=== PATIENT | female | born 1995 | race Caucasian/White ===

== ENCOUNTER 2018-08-30 16:50 | Emergency (ER) | payer OTHER ==
--- NOTE | 2018-08-30 16:57 | PDOC ---
Rapid Medical Evaluation Chief Complaint: Vaginal Bleeding Time Seen by Provider: 08/30/18 16:53 Medical Evaluation: Allergies Allergy/AdvReac Type Severity Reaction Status Date / Time No Known Allergies Allergy Verified 08/30/18 16:52 08/30/18 16:53 I have performed a brief in person evaluation of this patient. The patient presents with a CC of: vaginal bleeding Pt is a 23 YO female who states she has had vaginal bleeding x 1 day. Pt states her LMP was 2 weeks ago. Pt admit to pain. Pain is a 4/10. PE: Skin: clear Lungs: Clear Heart: RRR Abd: No pain upon palpation MS: Moves all extremities without difficulty. Psych: Age appropriate. I have ordered the following: [facility] [place] The patient will proceed to the ED for further evaluation. Discharge Disposition - Diagnosis Vaginal bleeding - Referrals - Patient Instructions - Post Discharge Activity
[2018-08-30 17:08] VITALS: BP 124/78; PULSE 79; TEMP 98.2; BMI 27.8
--- NOTE | 2018-08-30 17:34 | PDOC ---
History of Present Illness - General Chief Complaint: Vaginal Bleeding Stated Complaint: VAGINAL BLEEDING Time Seen by Provider: 08/30/18 16:53 History Source: Patient Exam Limitations: No Limitations - History of Present Illness Initial Comments: 08/30/18 17:59 Patient is a 23-year-old female with no past medical history, who presents to the emergency department today for blood when she wipes. Patient states that she has pain when she pees and feels like she has to constantly urinate. She states that only a little amount of urine comes out when she pees. LMP was two weeks ago. Denies fevers, chills, back pain, n/v/d. Past History - Travel Traveled outside of the country in the last 30 days: No Close contact w/someone who was outside of country & ill: No - Past Medical History Allergies/Adverse Reactions: Allergies Allergy/AdvReac Type Severity Reaction Status Date / Time No Known Allergies Allergy Verified 08/30/18 16:52 Home Medications: Ambulatory Orders Cephalexin Monohydrate [Keflex -] 500 mg PO BID #14 capsule 08/30/18 Phenazopyridine HCl [Pyridium -] 100 mg PO TID #9 tablet 08/30/18 COPD: No - Immunization History Immunization Up to Date: Yes - Suicide/Smoking/Psychosocial Hx Smoking History: Never smoked Hx Alcohol Use: No Drug/Substance Use Hx: No Substance Use Type: None Review of Systems - Review of Systems Able to Perform ROS?: Yes Comments:: 08/30/18 17:33 CONSTITUTIONAL: Absent: fever, chills, diaphoresis, generalized weakness, malaise, loss of appetite HEENT: Absent: rhinorrhea, nasal congestion, throat pain, throat swelling, difficulty swallowing, mouth swelling, ear pain, eye pain, visual Changes CARDIOVASCULAR: Absent: chest pain, loss of consciousness, palpitations, irregular heart rate, peripheral edema RESPIRATORY: Absent: cough, shortness of breath, dyspnea with exertion, orthopnea, wheezing, stridor, hemoptysis GASTROINTESTINAL: Absent: abdominal pain, abdominal distension, nausea, vomiting, diarrhea, constipation, melena, hematochezia GENITOURINARY: Present: dysuria, frequency, urgency Absent: hesitancy, hematuria, flank pain, genital pain MUSCULOSKELETAL: Absent: myalgia, arthralgia, joint swelling SKIN: Absent: rash, itching, pallor HEMATOLOGIC/IMMUNOLOGIC: Absent: easy bleeding, easy bruising, lymphadenopathy, frequent infections ENDOCRINE: Absent: unexplained weight gain, unexplained weight loss, heat intolerance, cold intolerance NEUROLOGIC: Absent: headache, focal weakness or paresthesias, dizziness, unsteady gait, seizure, mental status changes, bladder or bowel incontinence PSYCHIATRIC: Absent: anxiety, depression, suicidal or homicidal ideation, hallucinations. Is the patient limited Chinese proficient: No *Physical Exam - Vital Signs Last Vital Signs Temp Pulse Resp BP Pulse Ox 98.2 F 79 16 124/78 99 08/30/18 16:52 08/30/18 16:52 08/30/18 16:52 08/30/18 16:52 08/30/18 16:52 - Physical Exam Comments: 08/30/18 17:34 GENERAL: Well developed, well nourished. Awake and alert. No acute distress. HEENT: Normocephalic, atraumatic. PERRLA, EOMI. No conjunctival pallor. Sclera are non- icteric. Moist mucous membranes. Oropharynx is clear. NECK: Supple. Full ROM. No JVD. Carotid pulses 2+ and symmetric, without bruits. No thyromegaly. No lymphadenopathy. CARDIOVASCULAR: Regular rate and rhythm. No murmurs, rubs, or gallops. Distal pulses are 2+ and symmetric. PULMONARY: No evidence of respiratory distress. Lungs clear to auscultation bilaterally. No wheezing, rales or rhonchi. ABDOMINAL: Discomfort with palpation to the suprapubic region. Soft. Non-tender. Non- distended. No rebound or guarding. No organomegaly. Normoactive bowel sounds. : Pt refuses vaginal exam. MUSCULOSKELETAL Normal range of motion at all joints. No bony deformities or tenderness. No CVA tenderness. EXTREMITIES: No cyanosis. No clubbing. No edema. No calf tenderness. SKIN: Warm and dry. Normal capillary refill. No rashes. No jaundice. NEUROLOGICAL: Alert, awake, appropriate. Cranial nerves 2-12 intact. No deficits to light touch and temperature in face, upper extremities and lower extremities. No motor deficits in the in face, upper extremities and lower extremities. Normoreflexic in the upper and lower extremities. Normal speech. Toes are down- going bilaterally. Gait is normal without ataxia. PSYCHIATRIC: Cooperative. Good eye contact. Appropriate mood and affect. Medical Decision Making - Medical Decision Making 08/30/18 19:17 Pt is a 23 y/o F who presents to the ED for "blood when she wipes" after using the bathroom. Also admits to dysuria and frequency with poor emptying. DDX: UTI , , ectopic, dysmenorrhea. -LMP two weeks ago. -Exam: Pt with suprapubic tenderness. Negative CVA tenderness -Pt refusing vaginal exam at this time as she does not feel comfortable taking her clothes off. Explained to patient that her exam is incomplete as she refuses the pelvic exam. Pt understands and states she needs an sheet tester -Urine is negative for -UA with 1+ Leuks, 10 WBC. Will treat for UTI at this time. Keflex and pyridium given -DC home with both PCP and [facility] referrals. -I discussed the physical exam findings, ancillary test results and final diagnoses with the patient. I answered all of the patient's questions. The patient was satisfied with the care received and felt comfortable with the discharge plan and treatment plan. The Patient agrees to follow up with the primary care physician/specialist within 24-72 hours. Return precautions were given. *DC/Admit/Observation/Transfer Diagnosis at time of Disposition: UTI (urinary tract infection) Qualifiers: Urinary tract infection type: acute cystitis Hematuria presence: with hematuria Qualified Code(s): N30.01 - Acute cystitis with hematuria - Discharge Dispostion Disposition: HOME Condition at time of disposition: Stable Decision to Admit order: No - Prescriptions Prescriptions: Cephalexin Monohydrate [Keflex -] 500 mg PO BID #14 capsule Phenazopyridine HCl [Pyridium -] 100 mg PO TID #9 tablet - Referrals Referrals: Sari Cui MD [Staff Physician] - Lashell Giarldo MD [Staff Physician] - Giovanna Brand MD [Staff Physician] - - Patient Instructions Printed Discharge Instructions: DI for Urinary Tract Infection (UTI) Additional Instructions: You have a urinary tract infection. This caused by bacteria. Please drink plenty of fluids. Take your antibiotics (Keflex) twice a day for one week. Finish the entire dose even if you feel better. Take the Pyridium three times a day with food. This helps with the discomfort You may take Tylenol or Motrin as needed for pain. Follow the dosing instructions on the bottle Please follow up with your primary care doctor this week. You have a referral to see Dr. Pierce blancas for primary care. Dr Cui is for [facility] Return to the emergency department if you have fevers, chills, nausea, vomiting , back pain, or have any changes in your symptoms. - Post Discharge Activity Forms/Work/School Notes: Back to Work
[2018-08-30 18:08] LABS: HCG,QUALITATIVE URINE Negative
[2018-08-30 19:14] LABS: URINE APPEARANCE CLEAR; URINE BILIRUBIN NEGATIVE (<2.0 mg/dL); URINE COLOR STRAW; URINE GLUCOSE (UA) NEGATIVE (NEGATIVE); URINE KETONE NEGATIVE (NEGATIVE); URINE LEUK ESTERASE 1+ (NEGATIVE); URINE NITRITE NEGATIVE (NEGATIVE); URINE PROTEIN NEGATIVE (NEGATIVE); URINE UROBILINOGEN NEGATIVE mg/dL (0.2-1.0)
[2018-08-30 19:17] LABS: EPI CELLS RARE /HPF (FEW)
== END 2018-08-30 20:26 | disposition home or self-care (01) ==
LOC: JER 16:50 → JERFT 16:50
DX: N30.01 Acute cystitis with hematuria (principal)
CPT/HCPCS: 81003; 81015; 84703; 99281-25

== ENCOUNTER 2018-09-24 10:52 | Emergency (ER) | payer OTHER ==
[2018-09-24 11:42] VITALS: BP 100/74; PULSE 70; TEMP 98.2; BMI 27.8
[2018-09-24 12:30] LABS: HCG,QUALITATIVE URINE Negative
[2018-09-24 12:43] LABS: URINE APPEARANCE CLOUDY; URINE BILIRUBIN NEGATIVE (<2.0 mg/dL); URINE COLOR RED; URINE GLUCOSE (UA) NEGATIVE (NEGATIVE); URINE KETONE NEGATIVE (NEGATIVE); URINE LEUK ESTERASE NEGATIVE (NEGATIVE); URINE NITRITE NEGATIVE (NEGATIVE); URINE PROTEIN 1+ (NEGATIVE); URINE UROBILINOGEN NEGATIVE mg/dL (0.2-1.0)
--- NOTE | 2018-09-24 14:03 | PDOC ---
History of Present Illness - General Chief Complaint: Vaginal Sxs Stated Complaint: NOT FEELING WELL Time Seen by Provider: 09/24/18 12:30 History Source: Patient Exam Limitations: No Limitations Past History - Travel Traveled outside of the country in the last 30 days: No Close contact w/someone who was outside of country & ill: No - Past Medical History Allergies/Adverse Reactions: Allergies Allergy/AdvReac Type Severity Reaction Status Date / Time No Known Allergies Allergy Verified 09/24/18 11:39 COPD: No - Immunization History Immunization Up to Date: Yes - Suicide/Smoking/Psychosocial Hx Smoking History: Never smoked Hx Alcohol Use: No Drug/Substance Use Hx: No Substance Use Type: None Review of Systems - Review of Systems Able to Perform ROS?: Yes Comments:: 09/24/18 13:59 CONSTITUTIONAL: Absent: fever, chills, diaphoresis, generalized weakness, malaise, loss of appetite HEENT: Absent: rhinorrhea, nasal congestion, throat pain, throat swelling, difficulty swallowing, mouth swelling, ear pain, eye pain, visual Changes CARDIOVASCULAR: Absent: chest pain, loss of consciousness, palpitations, irregular heart rate, peripheral edema RESPIRATORY: Absent: cough, shortness of breath, dyspnea with exertion, orthopnea, wheezing, stridor, hemoptysis GASTROINTESTINAL: Absent: abdominal pain, abdominal distension, nausea, vomiting, diarrhea, constipation, melena, hematochezia GENITOURINARY: Absent: dysuria, frequency, urgency, hesitancy, hematuria, flank pain, genital pain MUSCULOSKELETAL: Absent: myalgia, arthralgia, joint swelling SKIN: Absent: rash, itching, pallor HEMATOLOGIC/IMMUNOLOGIC: Absent: easy bleeding, easy bruising, lymphadenopathy, frequent infections ENDOCRINE: Absent: unexplained weight gain, unexplained weight loss, heat intolerance, cold intolerance NEUROLOGIC: Absent: headache, focal weakness or paresthesias, dizziness, unsteady gait, seizure, mental status changes, bladder or bowel incontinence PSYCHIATRIC: Absent: anxiety, depression, suicidal or homicidal ideation, hallucinations. Is the patient limited Macanese proficient: No *Physical Exam - Vital Signs Last Vital Signs Temp Pulse Resp BP Pulse Ox 98.2 F 70 16 100/74 100 09/24/18 11:39 09/24/18 11:39 09/24/18 11:39 09/24/18 11:39 09/24/18 11:39 - Physical Exam Comments: 09/24/18 14:00 GENERAL: Well developed, well nourished. Awake and alert. No acute distress. HEENT: Normocephalic, atraumatic. PERRLA, EOMI. No conjunctival pallor. Sclera are non- icteric. Moist mucous membranes. Oropharynx is clear. NECK: Supple. Full ROM. No JVD. Carotid pulses 2+ and symmetric, without bruits. No thyromegaly. No lymphadenopathy. CARDIOVASCULAR: Regular rate and rhythm. No murmurs, rubs, or gallops. Distal pulses are 2+ and symmetric. PULMONARY: No evidence of respiratory distress. Lungs clear to auscultation bilaterally. No wheezing, rales or rhonchi. ABDOMINAL: Soft. Non-tender. Non-distended. No rebound or guarding. No organomegaly. Normoactive bowel sounds. MUSCULOSKELETAL Normal range of motion at all joints. No bony deformities or tenderness. No CVA tenderness. EXTREMITIES: No cyanosis. No clubbing. No edema. No calf tenderness. SKIN: Warm and dry. Normal capillary refill. No rashes. No jaundice. NEUROLOGICAL: Alert, awake, appropriate. Cranial nerves 2-12 intact. No deficits to light touch and temperature in face, upper extremities and lower extremities. No motor deficits in the in face, upper extremities and lower extremities. Normoreflexic in the upper and lower extremities. Normal speech. Toes are down- going bilaterally. Gait is normal without ataxia. PSYCHIATRIC: Cooperative. Good eye contact. Appropriate mood and affect. ED Treatment Course - ADDITIONAL ORDERS Additional order review: Laboratory Results 09/24/18 12:10 Urine Color Red Urine Appearance Cloudy Urine pH 5.0 Ur Specific [place] 1.012 Urine Protein 1+ H Urine Glucose (UA) Negative Urine Ketones Negative Urine Blood 3+ H Urine Nitrite Negative Urine Bilirubin Negative Urine Urobilinogen Negative Ur Leukocyte Esterase Negative Urine WBC (Auto) None Urine RBC (Auto) 2524 Urine HCG, Qual Negative *DC/Admit/Observation/Transfer Diagnosis at time of Disposition: Normal menstrual period - Discharge Dispostion Disposition: HOME Condition at time of disposition: Stable Decision to Admit order: No - Referrals Referrals: Giovanna Brand MD [Primary Care Provider] - Sari Cui MD [Staff Physician] - - Patient Instructions Printed Discharge Instructions: DI for Vaginal Bleeding Additional Instructions: Your exam showed normal anatomy today Your bleeding appears to come from the vagina, which is most likely your menstrual cycle Please follow up with INSTRUMENT CHECKER, Dr. Cui Return to the ED for any new or worsening symptoms - Post Discharge Activity
== END 2018-09-24 14:05 | disposition home or self-care (01) ==
LOC: JERFT 10:52
DX: N94.89 Other specified conditions associated with female genital organs and menstrual cycle (principal)
CPT/HCPCS: 81003; 81015; 84703; 87086; 99281-25

== ENCOUNTER 2020-11-14 15:50 | Emergency (ER) | payer OTHER ==
[2020-11-14 16:07] VITALS: BMI 30.9
[2020-11-14] MEDS ORDERED: ACETAMINOPHEN 325 MG TABLET (FP) PO ONE (17:32)
[2020-11-14] MEDS ORDERED: METOCLOPRAMIDE HCL 10 MG TABLET (FP) PO ONE ×2 (17:35→17:46)
[2020-11-14] MEDS ORDERED: ASPIRIN 325 MG TABLET PO ONE (17:35)
[2020-11-14] MEDS ORDERED: ACETAMINOPHEN 325 MG TABLET (FP) ONE (17:45)
[2020-11-14] MEDS ORDERED: ASPIRIN 325 MG ENTERIC COATED TABLET (FP) ONE (17:45)
[2020-11-14 19:49] VITALS: BP 118/77; PULSE 89; TEMP 98.2
== END 2020-11-14 19:45 | disposition home or self-care (01) ==
LOC: JER 15:50
DX: R51.9 Headache, unspecified (principal)
CPT/HCPCS: 84703; 99285-25; C9803; U0003

== ENCOUNTER 2021-05-01 21:00 | Emergency (ER) | payer OTHER ==
[2021-05-01 21:17] VITALS: TEMP 98.2; BMI 33.0
[2021-05-02 01:00] LABS: PH,URINE 6.5 (5.0-8.0); URINE APPEARANCE Clear; URINE BILIRUBIN Negative (NEGATIVE); URINE COLOR Light yellow; URINE GLUCOSE (UA) Negative (NEGATIVE); URINE KETONE Negative (NEGATIVE); URINE LEUK ESTERASE Trace (NEGATIVE); URINE NITRITE Negative (NEGATIVE); URINE PROTEIN Negative (NEGATIVE); URINE UROBILINOGEN 0.2 mg/dL (0.2-1.0)
[2021-05-02 02:12] VITALS: BP 112/85; PULSE 73
== END 2021-05-02 02:25 | disposition home or self-care (01) ==
LOC: JER 21:00
DX: R22.41 Localized swelling, mass and lump, right lower limb (principal); R22.42 Localized swelling, mass and lump, left lower limb
CPT/HCPCS: 76856-TC; 81003; 82962; 84703; 93970-TC; 99284-25

== ENCOUNTER 2022-03-29 14:46 | Emergency (ER) | payer OTHER ==
[2022-03-29 14:52] VITALS: BP 119/75; PULSE 78; TEMP 98.8; BMI 36.6
[2022-03-29] MEDS ORDERED: ACETAMINOPHEN 500 MG TABLET (FP) PO ONE (16:50)
[2022-03-29] MEDS ORDERED: ASPIRIN 325 MG TABLET PO ONE (16:50)
[2022-03-29] MEDS ORDERED: ASPIRIN 325 MG TABLET ONE (17:11)
[2022-03-29] MEDS ORDERED: ACETAMINOPHEN 325 MG TABLET (FP) ONE (17:11)
[2022-03-29 19:11] LABS: BASO % 0.3 % (0-2.0); EOS % 1.3 % (0-4.5); HEMATOCRIT 37.7 % (32.4-45.2); HEMOGLOBIN 12.3 GM/dL (10.7-15.3); LYMPH % 30.8 % (8-40); MCH 25.1 pg (25.7-33.7); MCHC 32.7 g/dl (32.0-36.0); MEAN CELL VOLUME 76.9 fl (80-96); MEAN PLT VOLUME 7.7 fl (7.5-11.1); MONO % 6.2 % (3.8-10.2); NEUT % 61.4 % (42.8-82.8); PLATELET COUNT 279 10^3/uL (134-434); RDW 17.2 % (11.6-15.6); WHITE BLOOD COUNT 6.6 K/mm3 (4.0-10.0)
[2022-03-29 19:18] LABS: INR 1.14 (0.83-1.09); PROTHROMBIN TIME (PATIENT) 13.1 SEC (9.7-13.0)
[2022-03-29 19:24] LABS: CALCIUM 8.9 mg/dL (8.5-10.1)
[2022-03-29 19:25] LABS: ALBUMIN 3.9 g/dl (3.4-5.0); BLOOD UREA NITROGEN 7.7 mg/dL (7-18); MAGNESIUM 2.4 mg/dL (1.8-2.4)
[2022-03-29 19:28] LABS: CREATININE 0.8 mg/dL (0.55-1.3)
[2022-03-29 19:29] LABS: BILIRUBIN,TOTAL 0.4 mg/dL (0.2-1)
[2022-03-29 19:30] LABS: TOT PROT 7.6 g/dl (6.4-8.2)
[2022-03-29 19:46] LABS: HCG,QUALITATIVE URINE Negative
[2022-03-29 19:47] LABS: EPI CELLS 14 /uL (0-25.1); HYALINE CASTS 2 /uL (0-3.1); URINE APPEARANCE CLOUDY; URINE BACTERIA 10 /uL (0-1359); URINE BILIRUBIN NEGATIVE (NEGATIVE); URINE COLOR YELLOW; URINE GLUCOSE (UA) NEGATIVE (NEGATIVE); URINE KETONE TRACE (NEGATIVE); URINE LEUK ESTERASE 1+ (NEGATIVE); URINE NITRITE NEGATIVE (NEGATIVE); URINE PROTEIN 1+ (NEGATIVE); URINE RBC 9209 /uL (0-23.9); URINE UROBILINOGEN 0.2 mg/dL (0.2-1.0); URINE WBC 57 /uL (0-25.8)
[2022-03-29] MEDS ORDERED: NAPROXEN 500 MG TABLET PO ONE (19:59)
[2022-03-29] MEDS ORDERED: NAPROXEN 500 MG TABLET ONE (20:03)
== END 2022-03-29 22:39 | disposition home or self-care (01) ==
LOC: JER 14:46
DX: R07.9 Chest pain, unspecified (principal)
CPT/HCPCS: 36415; 71046-TC-FY; 80053; 81003; 83735; 84484; 84703; 85025; 85379; 85610; 87086; 87186; 93005; 93010; 99285-25

== ENCOUNTER 2023-06-20 20:28 | Emergency (ER) | payer OTHER ==
[2023-06-20 20:36] VITALS: RESP 18; TEMP 98; BMI 34.5
[2023-06-20 23:32] LABS: BASO % 0.3 % (0-2.0); EOS % 1.4 % (0-4.5); HEMATOCRIT 30.3 % (32.4-45.2); HEMOGLOBIN 9.7 GM/dL (10.7-15.3); LYMPH % 32.6 % (8-40); MCH 21.8 pg (25.7-33.7); MCHC 32.2 g/dl (32.0-36.0); MEAN CELL VOLUME 67.8 fl (80-96); MEAN PLT VOLUME 6.6 fl (7.5-11.1); MONO % 5.6 % (3.8-10.2); NEUT % 60.1 % (42.8-82.8); PLATELET COUNT 469 10^3/uL (134-434); RBC 4.46 M/mm3 (3.60-5.2); RDW 17.1 % (11.6-15.6); WHITE BLOOD COUNT 9.8 K/mm3 (4.0-10.0)
[2023-06-20 23:48] VITALS: BP 124/80; PULSE 77
[2023-06-20 23:56] LABS: ALBUMIN 3.6 g/dl (3.4-5.0); CALCIUM 8.9 mg/dL (8.5-10.1)
[2023-06-20 23:59] LABS: CREATININE 0.8 mg/dL (0.55-1.3)
[2023-06-21] LABS: EPI CELLS 30 /uL (0-25.1); HYALINE CASTS 1 /uL (0-3.1); PH,URINE 5.5 (5.0-8.0); URINE APPEARANCE CLEAR; URINE BACTERIA 40 /uL (0-1359); URINE BILIRUBIN NEGATIVE (NEGATIVE); URINE COLOR YELLOW; URINE GLUCOSE (UA) NEGATIVE (NEGATIVE); URINE KETONE NEGATIVE (NEGATIVE); URINE LEUK ESTERASE 3+ (NEGATIVE); URINE NITRITE NEGATIVE (NEGATIVE); URINE PROTEIN NEGATIVE (NEGATIVE); URINE RBC 2026 /uL (0-23.9); URINE UROBILINOGEN 0.2 mg/dL (0.2-1.0); URINE WBC 391 /uL (0-25.8)
[2023-06-21 00:01] LABS: BILIRUBIN,TOTAL 0.2 mg/dL (0.2-1); TOT PROT 7.7 g/dl (6.4-8.2)
[2023-06-21 00:03] LABS: POTASSIUM 4.3 mmol/L (3.5-5.1)
[2023-06-21 00:32] LABS: ANISOCYTOSIS 2+; MACROCYTOSIS 0; OVALOCYTE 2+; TARGET CELLS 2+; TEAR DROP CELLS 2+
[2023-06-21 00:35] LABS: BLOOD UREA NITROGEN 12.2 mg/dL (7-18)
== END 2023-06-21 02:44 | disposition home or self-care (01) ==
LOC: JER 20:28
DX: M54.50 Low back pain, unspecified (principal); R10.32 Left lower quadrant pain; N93.9 Abnormal uterine and vaginal bleeding, unspecified; D50.9 Iron deficiency anemia, unspecified; K52.9 Noninfective gastroenteritis and colitis, unspecified
CPT/HCPCS: 36415; 74177-TC; 80053; 81003; 84703; 85025; 86850; 86900; 86901; 87086; 99285-25; Q9967

== ENCOUNTER 2024-02-05 09:05 | Emergency (ER) | payer OTHER ==
[2024-02-05 09:44] VITALS: BP 113/76; BMI 34.5
[2024-02-05] MEDS ORDERED: ACETAMINOPHEN INJECTION 100 ML IVPB ONE (11:08)
[2024-02-05] MEDS: LACTATED RINGERS SOLUTION 1000 ML INFUS.BAG IV ONE (11:14)
[2024-02-05] MEDS: ACETAMINOPHEN 1000 MG/100 ML BAG IVPB ONE (11:14)
[2024-02-05 11:21] LABS: BASO % 0.6 % (0-2.0); EOS % 2.7 % (0-4.5); HEMATOCRIT 42.6 % (32.4-45.2); HEMOGLOBIN 14.4 GM/dL (10.7-15.3); LYMPH % 24.1 % (8-40); MCH 28.8 pg (25.7-33.7); MCHC 33.8 g/dl (32.0-36.0); MEAN CELL VOLUME 85.3 fl (80-96); MEAN PLT VOLUME 7.3 fl (7.5-11.1); NEUT % 65.6 % (42.8-82.8); PLATELET COUNT 297 10^3/uL (134-434); RBC 4.99 M/mm3 (3.60-5.2); RDW 13.7 % (11.6-15.6); WHITE BLOOD COUNT 8.3 K/mm3 (4.0-10.0)
[2024-02-05 11:52] LABS: THROAT:GRP A STREP NOT DETECTED (NOTDETECTED)
[2024-02-05 11:55] LABS: POTASSIUM 5.9 mmol/L (3.5-5.1)
[2024-02-05 11:57] LABS: CALCIUM 8.8 mg/dL (8.5-10.1)
[2024-02-05 11:58] LABS: ALBUMIN 3.5 g/dl (3.4-5.0); BLOOD UREA NITROGEN 8.8 mg/dL (7-18)
[2024-02-05 12:01] LABS: CREATININE 0.8 mg/dL (0.55-1.3)
[2024-02-05 12:02] LABS: BILIRUBIN,TOTAL 0.5 mg/dL (0.2-1)
[2024-02-05 12:03] LABS: TOT PROT 7.8 g/dl (6.4-8.2)
[2024-02-05] MEDS ORDERED: KETOROLAC TROMETHAMINE 15 MG/ML VIAL ONE (12:21)
[2024-02-05] MEDS: KETOROLAC TROMETHAMINE 15 MG/ML VIAL IVPUSH ONE (12:26)
[2024-02-05 14:27] LABS: POTASSIUM 5.4 mmol/L (3.5-5.1)
[2024-02-05 14:32] LABS: BLOOD UREA NITROGEN 9.2 mg/dL (7-18)
[2024-02-05 14:40] LABS: CREATININE 0.8 mg/dL (0.55-1.3)
[2024-02-05] MEDS ORDERED: METOCLOPRAMIDE HCL INJECTION 10 MG/2 ML VIAL ONE (14:42)
[2024-02-05] MEDS: METOCLOPRAMIDE HCL INJECTION 10 MG/2 ML VIAL IVPUSH ONE (14:46)
== END 2024-02-05 15:04 | disposition home or self-care (01) ==
LOC: JER 09:05 → JERFT 09:05 → JER 15:04
PROC: 3E030GC Introduction of Other Therapeutic Substance into Peripheral Vein, Open Approach (ICD-10-PCS; principal; 2024-02-05)
PROC: 3E030GC Introduction of Other Therapeutic Substance into Peripheral Vein, Open Approach (ICD-10-PCS; 2024-02-05)
PROC: 3E030GC Introduction of Other Therapeutic Substance into Peripheral Vein, Open Approach (ICD-10-PCS; 2024-02-05)
DX: J18.9 Pneumonia, unspecified organism (principal); R51.9 Headache, unspecified; R11.2 Nausea with vomiting, unspecified; R05.9 Cough, unspecified; J02.9 Acute pharyngitis, unspecified; R09.81 Nasal congestion; R10.31 Right lower quadrant pain; Z20.822 Contact with and (suspected) exposure to COVID-19
CPT/HCPCS: 0241U-QW; 36415; 74177-TC; 80048; 80053; 84703; 85025; 86140; 87651; 99285-25; J0131; Q9967

== ENCOUNTER 2024-05-31 19:21 | Emergency (ER) | payer OTHER ==
[2024-05-31 19:25] VITALS: BP 115/79; PULSE 90; RESP 18; TEMP 98.3; BMI 34.5
[2024-05-31] MEDS ORDERED: ACETAMINOPHEN 500 MG TABLET (FP) ONE (21:06)
[2024-05-31] MEDS: ACETAMINOPHEN 500 MG TABLET (FP) PO ONE (21:15)
[2024-05-31 21:19] LABS: BASO % 0.4 % (0-2.0); EOS % 1.1 % (0-4.5); HEMATOCRIT 40.4 % (32.4-45.2); HEMOGLOBIN 13.9 GM/dL (10.7-15.3); LYMPH % 32.3 % (8-40); MCH 28.8 pg (25.7-33.7); MCHC 34.5 g/dl (32.0-36.0); MEAN CELL VOLUME 83.3 fl (80-96); MEAN PLT VOLUME 7.3 fl (7.5-11.1); NEUT % 60.2 % (42.8-82.8); PLATELET COUNT 279 10^3/uL (134-434); RBC 4.85 M/mm3 (3.60-5.2); RDW 14.5 % (11.6-15.6)
[2024-05-31 21:23] LABS: EPI CELLS >36 /uL (0-25.1); HYALINE CASTS 0 /uL (0-3.1); PH,URINE 5.5 (5.0-8.0); URINE APPEARANCE CLEAR; URINE BACTERIA 262 /uL (0-1359); URINE BILIRUBIN NEGATIVE (NEGATIVE); URINE COLOR YELLOW; URINE GLUCOSE (UA) NEGATIVE (NEGATIVE); URINE KETONE NEGATIVE (NEGATIVE); URINE LEUK ESTERASE 1+ (NEGATIVE); URINE NITRITE NEGATIVE (NEGATIVE); URINE PROTEIN NEGATIVE (NEGATIVE); URINE RBC 2588 /uL (0-23.9); URINE UROBILINOGEN 0.2 mg/dL (0.2-1.0); URINE WBC 78 /uL (0-25.8)
[2024-05-31 21:56] LABS: HCG,QUALITATIVE URINE Negative
== END 2024-05-31 22:09 | disposition home or self-care (01) ==
LOC: JER 19:21
DX: N39.0 Urinary tract infection, site not specified (principal); R10.30 Lower abdominal pain, unspecified; N93.9 Abnormal uterine and vaginal bleeding, unspecified; R53.1 Weakness
CPT/HCPCS: 36415; 81003; 84703; 85025; 87077; 87086; 99283-25

== ENCOUNTER 2024-08-04 21:47 | Emergency (ER) | payer OTHER ==
[2024-08-04 21:51] VITALS: BMI 33.1
[2024-08-04] MEDS ORDERED: FAMOTIDINE 20 MG/50 ML IVPB 20 MG/50 ML MG IVPB ONE (22:58)
[2024-08-04] MEDS ORDERED: ONDANSETRON 4 MG/2 ML VIAL ONE (22:58)
[2024-08-04] MEDS ORDERED: ACETAMINOPHEN INJECTION 100 ML ONE (22:58)
[2024-08-04 23:05] LABS: BASO % 0.3 % (0-2.0); EOS % 2.6 % (0-4.5); HEMATOCRIT 36.7 % (32.4-45.2); HEMOGLOBIN 12.4 GM/dL (10.7-15.3); LYMPH % 23.8 % (8-40); MCHC 33.6 g/dl (32.0-36.0); MEAN CELL VOLUME 83.2 fl (80-96); MEAN PLT VOLUME 7.2 fl (7.5-11.1); MONO % 6.5 % (3.8-10.2); NEUT % 66.8 % (42.8-82.8); PLATELET COUNT 334 10^3/uL (134-434); RBC 4.42 M/mm3 (3.60-5.2); RDW 14.2 % (11.6-15.6); WHITE BLOOD COUNT 9.9 K/mm3 (4.0-10.0)
[2024-08-04] MEDS: ACETAMINOPHEN 1000 MG/100 ML BAG IVPB ONE (23:09)
[2024-08-04] MEDS: ONDANSETRON 4 MG/2 ML VIAL IVPB ONE (23:09)
[2024-08-04] MEDS: FAMOTIDINE 20 MG/50 ML IVPB 20 MG/50 ML MG IVPB ONE (23:10)
[2024-08-04 23:19] LABS: POTASSIUM 4.1 mmol/L (3.5-5.1)
[2024-08-04 23:22] LABS: CALCIUM 8.6 mg/dL (8.5-10.1)
[2024-08-04 23:23] LABS: ALBUMIN 3.4 g/dl (3.4-5.0); BLOOD UREA NITROGEN 11.7 mg/dL (7-18)
[2024-08-04 23:26] LABS: CREATININE 0.9 mg/dL (0.55-1.3); EPI CELLS 31 /uL (0-25.1); HYALINE CASTS 0 /uL (0-3.1); PH,URINE 5.5 (5.0-8.0); URINE APPEARANCE CLEAR; URINE BACTERIA 203 /uL (0-1359); URINE BILIRUBIN NEGATIVE (NEGATIVE); URINE COLOR YELLOW; URINE GLUCOSE (UA) NEGATIVE (NEGATIVE); URINE KETONE NEGATIVE (NEGATIVE); URINE LEUK ESTERASE TRACE (NEGATIVE); URINE NITRITE NEGATIVE (NEGATIVE); URINE PROTEIN NEGATIVE (NEGATIVE); URINE RBC 9 /uL (0-23.9); URINE UROBILINOGEN 0.2 mg/dL (0.2-1.0); URINE WBC 26 /uL (0-25.8)
[2024-08-04 23:27] LABS: BILIRUBIN,TOTAL 0.2 mg/dL (0.2-1); TOT PROT 6.8 g/dl (6.4-8.2)
[2024-08-04 23:36] LABS: HCG,QUALITATIVE URINE Negative
[2024-08-05 00:30] LABS: HIV INTERPRETATION NEGATIVE (NEGATIVE)
[2024-08-05] MEDS ORDERED: KETOROLAC TROMETHAMINE 30 MG/1 ML VIAL IM ONE (00:50)
[2024-08-05] MEDS ORDERED: KETOROLAC TROMETHAMINE 30 MG/1 ML VIAL ONE (00:52)
[2024-08-05] MEDS: KETOROLAC TROMETHAMINE 30 MG/1 ML VIAL IVPUSH ONE (00:53)
[2024-08-05 01:11] VITALS: BP 118/73; PULSE 58; RESP 16; TEMP 98.1
[2024-08-05] MEDS ORDERED: CEPHALEXIN MONOHYDRATE 500 MG CAPSULE (UD) ONE (02:32)
[2024-08-05] MEDS: CEPHALEXIN MONOHYDRATE 500 MG CAPSULE (UD) PO ONE (02:33)
== END 2024-08-05 02:34 | disposition home or self-care (01) ==
LOC: JER 21:47
PROC: 3E033GC Introduction of Other Therapeutic Substance into Peripheral Vein, Percutaneous Approach (ICD-10-PCS; principal; 2024-08-04)
PROC: 3E033GC Introduction of Other Therapeutic Substance into Peripheral Vein, Percutaneous Approach (ICD-10-PCS; 2024-08-04)
PROC: 3E033NZ Introduction of Analgesics, Hypnotics, Sedatives into Peripheral Vein, Percutaneous Approach (ICD-10-PCS; 2024-08-04)
PROC: 3E0333Z Introduction of Anti-inflammatory into Peripheral Vein, Percutaneous Approach (ICD-10-PCS; 2024-08-04)
DX: R10.32 Left lower quadrant pain (principal); R11.0 Nausea; N39.0 Urinary tract infection, site not specified; R10.31 Right lower quadrant pain
CPT/HCPCS: 36415; 74177-TC; 76830-TC; 80053; 81003; 83690; 84703; 85025; 86803; 87077; 87086; 87389; 99285-25; J0131; Q9967

== ENCOUNTER 2024-12-12 10:28 | Emergency (ER) | payer OTHER ==
[2024-12-12 10:36] VITALS: BP 120/71; PULSE 79; RESP 18; TEMP 98.5; BMI 33.5
[2024-12-12] MEDS ORDERED: METOCLOPRAMIDE HCL 10 MG TABLET (FP) PO ONE (11:25)
[2024-12-12] MEDS ORDERED: KETOROLAC TROMETHAMINE 30 MG/1 ML VIAL ONE (11:25)
[2024-12-12] MEDS ORDERED: ACETAMINOPHEN 500 MG TABLET (FP) ONE (11:25)
[2024-12-12] MEDS: KETOROLAC TROMETHAMINE 30 MG/1 ML VIAL IM ONE (11:31)
[2024-12-12] MEDS: METOCLOPRAMIDE HCL 10 MG TABLET (FP) PO ONE (11:31)
[2024-12-12] MEDS: ACETAMINOPHEN 500 MG TABLET (FP) PO ONE (11:31)
== END 2024-12-12 12:59 | disposition home or self-care (01) ==
LOC: JER 10:28
PROC: 3E0233Z Introduction of Anti-inflammatory into Muscle, Percutaneous Approach (ICD-10-PCS; principal; 2024-12-12)
DX: R51.9 Headache, unspecified (principal); H53.149 Visual discomfort, unspecified; Z20.822 Contact with and (suspected) exposure to COVID-19
CPT/HCPCS: 0241U-QW; 99284-25

== ENCOUNTER 2025-04-07 09:49 | Emergency (ER) | payer OTHER ==
[2025-04-07 10:02] VITALS: RESP 20; BMI 34.5
[2025-04-07] MEDS ORDERED: METOCLOPRAMIDE HCL INJECTION 10 MG/2 ML VIAL ONE (10:35)
[2025-04-07] MEDS ORDERED: ACETAMINOPHEN INJECTION 100 ML ONE (10:35)
[2025-04-07] MEDS: ACETAMINOPHEN 1000 MG/100 ML BAG IVPB ONE (10:45)
[2025-04-07 10:58] LABS: ABSOLUTE IMMATURE GRANULOCYTES 0.02 x10^3/uL (0.0-0.031); BASOPHILS # 0.01 x10^3/uL (0.01-0.08); EOSINOPHIL % 1.4 % (0.7-5.8); EOSINOPHILS # 0.11 x10^3/uL (0.04-0.36); HEMATOCRIT 38.3 % (34.1-44.9); HEMOGLOBIN 12.5 g/dL (11.2-15.7); MCHC 32.6 g/dl (32.2-35.5); MEAN CELL VOLUME 74.8 fl (79.4-94.8); MONOCYTE # 0.32 x10^3/uL (0.24-0.86); PLATELET COUNT 344 x10^3/uL (182-369)
[2025-04-07] MEDS: METOCLOPRAMIDE HCL INJECTION 10 MG/2 ML VIAL IM ONE (11:00)
[2025-04-07] MEDS: METOCLOPRAMIDE HCL INJECTION 10 MG/2 ML VIAL IVPB ONE (11:01)
[2025-04-07 11:16] LABS: EPI CELLS 16 /uL (0-25.1); HYALINE CASTS 0 /uL (0-3.1); URINE APPEARANCE CLEAR; URINE BACTERIA 669 /uL (0-1359); URINE BILIRUBIN NEGATIVE (NEGATIVE); URINE COLOR YELLOW; URINE GLUCOSE (UA) NEGATIVE (NEGATIVE); URINE KETONE NEGATIVE (NEGATIVE); URINE LEUK ESTERASE 2+ (NEGATIVE); URINE NITRITE NEGATIVE (NEGATIVE); URINE PROTEIN NEGATIVE (NEGATIVE); URINE RBC 16 /uL (0-23.9); URINE UROBILINOGEN 0.2 mg/dL (0.2-1.0); URINE WBC 181 /uL (0-25.8)
[2025-04-07 11:25] LABS: CALCIUM 9.6 mg/dL (8.5-10.1)
[2025-04-07 11:26] LABS: ALBUMIN 3.5 g/dl (3.4-5.0); BLOOD UREA NITROGEN 10.1 mg/dL (7-18); MAGNESIUM 2.2 mg/dL (1.8-2.4)
[2025-04-07 11:29] LABS: CREATININE 0.8 mg/dL (0.55-1.3)
[2025-04-07 11:30] LABS: BILIRUBIN,TOTAL 0.5 mg/dL (0.2-1); TOT PROT 7.4 g/dl (6.4-8.2)
[2025-04-07] MEDS: LACTATED RINGERS SOLUTION 1000 ML INFUS.BAG IV ONE (12:21)
[2025-04-07] MEDS ORDERED: KETOROLAC TROMETHAMINE 15 MG/ML VIAL ONE (12:57)
[2025-04-07] MEDS ORDERED: MECLIZINE HCL 25 MG TABLET (FP) ONE (12:57)
[2025-04-07] MEDS: MECLIZINE HCL 25 MG TABLET (FP) PO ONE (13:23)
[2025-04-07] MEDS: KETOROLAC TROMETHAMINE 15 MG/ML VIAL IVPUSH ONE (13:23)
[2025-04-07] MEDS: KETOROLAC TROMETHAMINE 30 MG/1 ML VIAL IM ONE (13:24)
[2025-04-07] MEDS ORDERED: CEFTRIAXONE 1 GM/50 ML BAG ONE (14:29)
[2025-04-07] MEDS: CEFTRIAXONE 1,000 MG in DEXTROSE 5%-WATER - 50 ML IVPB ONE (14:35)
[2025-04-07 14:56] VITALS: BP 134/79; PULSE 82; TEMP 98.2
== END 2025-04-07 14:57 | disposition home or self-care (01) ==
LOC: JER 09:49
PROC: 3E03329 Introduction of Other Anti-infective into Peripheral Vein, Percutaneous Approach (ICD-10-PCS; principal; 2025-04-07)
PROC: 3E033NZ Introduction of Analgesics, Hypnotics, Sedatives into Peripheral Vein, Percutaneous Approach (ICD-10-PCS; 2025-04-07)
PROC: 3E0333Z Introduction of Anti-inflammatory into Peripheral Vein, Percutaneous Approach (ICD-10-PCS; 2025-04-07)
PROC: 3E033GC Introduction of Other Therapeutic Substance into Peripheral Vein, Percutaneous Approach (ICD-10-PCS; 2025-04-07)
DX: N39.0 Urinary tract infection, site not specified (principal); G43.909 Migraine, unspecified, not intractable, without status migrainosus; R73.9 Hyperglycemia, unspecified; R42 Dizziness and giddiness; R55 Syncope and collapse; R11.0 Nausea; M54.2 Cervicalgia; R35.0 Frequency of micturition
CPT/HCPCS: 36415; 70450-TC; 70496-TC; 80053; 81003; 83735; 84484; 84703; 85025; 86850; 86900; 86901; 87086; 93005; 93010; 96365; 96372; 99285-25; Q9967